=== PATIENT | male | born 1950 | race Caucasian/White ===

== ENCOUNTER 2024-03-06 14:06 | Outpatient (AMB) | payer MEDICARE, BC, SELFPAY ==
[2024-03-06 14:14] VITALS: BP 130/76; PULSE 100; BMI 22.9
--- NOTE | 2024-03-06 14:14 | A.OFFVIS_ITS ---
Vital Signs 03/06/24 14:14 Height 5 ft 4.5 in Weight 135 lb 5.821 oz BMI 22.9 BP 130/76 Blood Pressure Location Rt brachial Position Sitting Pulse 100 Pulse Source Pulse Oximeter Intake Visit Reasons: Joint Pain/LM Intake Note: Patient present today for joint pain. 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 Patient states that he has been noticing intermittent fatigue over the past year. This prompted his primary to send blood work to re-evaluate this including an AURORA. The AURORA came back positive 1:1280 cytoplasmic staining. In addition to his fatigue he also reports joint pain involving his hips, left great toe, knees, and occasional wrists. He denies prolonged morning stiffness or swelling involving his hands. Patient is an active gentleman who walks his dog for total of 4 miles a day and runs every other day for 3 miles. When he has noted his hip pain it is usually worse at night. Of note he had a acute monoarticular arthritis involving his left great toe- oc curred suddenly, warm and tender, resolved after about a week and a half. Mother had rheumatoid arthritis and daughter has some autoimmune disease that is undiagnosed at this time Denies rashes, photosensitivity, alopecia, oral/nasal ulcers, sicca symptoms, lymphadenopathy, chest pain/shortness of breath, inflammatory type joint pain, foamy urine, lower extremity edema, muscle weakness, Raynaud's Also denies history of seizure, CVA, psychosis, history of kidney problems, history of cytopenias, history of VTE including PE or DVTs Colonoscopy done last year was normal. BPH and most recent PSA was normal No night sweats or fevers No unexplained weight loss With respect to her fatigue patient states that he for the most part we will wake up feeling rested but by 2-3 p.m. in the afternoon he feels like she wants to take another nap and he is not sure if this is normal because of age or if this should be something concerning. He has been working on improving his sleep [facility] Medical History (Updated 03/06/24 @ 15:12 by Margi Craig MD) Gout AURORA positive Polyarthralgia Surgical History (Updated 03/06/24 @ 14:21 by ERIN Haywood) History of tonsillectomy Family History (Updated 03/06/24 @ 14:22 by ERIN Haywood) Mother No problems noted. Father Heart attack Social History (Updated 03/06/24 @ 14:22 by ERIN Haywood) Alcohol intake: never Patient Tobacco Use Status: Never used Tobacco Review of Systems Const Details: Review of Systems Constitutional: Denies fever, chills, weight loss ENT: Denies vision changes, eye pain or eye redness, dental caries, dry mouth GI: Denies nausea, vomiting, diarrhea, abdominal pain, change in BM Pulm: Denies SOB, DALY, hemoptysis, wheezing Cards: Denies chest pain, palpitations Skin: Denies Raynaud's, rash, nail changes, photosensitivity, [employer]PERVISOR COUNSELING [employer] GUIDANCE: Denies headaches, weakness, paresthesias, recurrent falls MSK: as per HPI All other systems reviewed and are unremarkable except noted above Physical Exam Vital Signs: Last Vital Signs Pulse 100 03/06/24 14:14 BP 130/76 03/06/24 14:14 BMI result Body Mass Index 22.9 Physical Examination CONSTITUITIONAL Patient alert and cooperative. Well appearing and in no apparent painful distress HEENT Conjunctiva and sclera clear. ?Pupils equal round and reactive to light. ?No lymphadenopathy. No tophi noted CHEST/RESPIRATORY SYSTEM Normal respiratory effort and able to speak in complete sentences. ?Clear to auscultation bilaterally. ?No crackles, rales, rhonchi, wheezes heard. CARDIAC SYSTEM Regular rate and rhythm. ?S1 and S2 heard no murmurs. ?Radial pulses intact bilaterally MSK Hands: ?Good deputy head strength bilaterally. Heberden's nodes noted throughout PIPs. ?No synovitis noted to the MCPs, PIPs or DIPs. ?No tenderness to palpation of these joints. Wrists: ?Full range of motion at the wrists without pain. ?No tenderness to palpation or synovitis noted to the wrists. Elbows: Full range of motion without pain. No tenderness, weakness, swelling, increased warmth or erythema. Shoulders: Full range of motion without pain. No tenderness, weakness, swelling, increased warmth or erythema. Hips: Full range of motion without pain. Hip bursa: No tenderness to palpation Knees: ?Full range of motion. ?No tenderness, swelling, increased warmth or erythema.?No effusion or crepitations Ankles: Full range of motion. ?No tenderness, swelling, increased warmth or erythema.? Feet: ?Negative squeeze test. ?No tenderness to palpation or swelling of the MTPs. Tender points:??No tenderness to palpation of the neck, shoulders, chest, elbows, hips, buttocks or knees. SKIN Skin intact without rashes. Results Reviewed Results Reviewed: AURORA 1:1280 Hb 11 Assessment & Plan Assessment & Plan (1) Polyarthralgia: Code(s): M25.50 - Pain in unspecified joint Category: Medical Plan: #Polyarthralgias At this time I do not believe that his polyarthralgias related to his positive AURORA. He denies any inflammatory type joint pain and she does not have any other signs or symptoms consistent with connective tissue disease. I do believe that his knee and hip pain might be related to osteoarthritis. No further workup at this time Signs and symptoms discussed with patient to look out for and he is to return to clinic if he has any further concerns (2) AURORA positive: Code(s): R76.8 - Other specified abnormal immunological findings in serum Category: Medical Plan: #Positive AURORA The presence of antinuclear antibodies (AURORA) is mainly associated with connective tissue diseases (CTD). ?However, their presence is found in healthy people especially in women and patients >65. ?In healthy individuals, the frequency of AURORA has been shown to be 31.7% of individuals at 1:40 serum dilution, 13.3% at 1:80, 5.0% at 1:160, and 3.3% at 1:320 (2). Some drugs and xenobiotics are also important for the development of AURORA (hydralazine, hydrochlorothiazide, minocycline, terbinafine, ciprofloxacin, furosemide, omeprazole). Moreover, the deficiency of vitamin D in the body of patients correlates with occurrence of these antibodies (1). At this time there is low suspicion for a connective tissue disease. I do believe that he has hydrochlorothiazide may have induced AURORA production. However this AURORA is not pathologic and this does not represent an autoimmune connective tissue disease at this time 1. Nancy?megan Young, Speedy Swanson, Johnathon Kirkland. Antinuclear antibodies in healthy people and non-rheumatic diseases - diagnostic and clinical implications. Reumatologia. 2018;56(4):243-248. doi: 10.5114/reum.2018.11802. Epub 2017Dec 02. PMID: 14872006; PMCID: [id number]. 2. Marquze EM, Faina TE, Juventino JS, Jami B, Ander R, Rosa MJ, Ki T, Jose Juan JA, Ana JR, Chacorta RG, Jonelle RN, Jak JS, Gerard NF, Nanci RJ, Catrina Y, Valeria A, Otoniel MR, Leon BEARD. Range of antinuclear antibodies in healthy individuals. Arthritis Rheum. 1996;40(9):1601-11. doi: 10.1002/art.[id number]. PMID: 2648097. (3) Gout: Code(s): M10.9 - Gout, unspecified Category: Medical Qualifiers: Gout site: toe Gout etiology: idiopathic Chronicity: unspecified Laterality: left Qualified Code(s): M10.072 - Idiopathic gout, left ankle and foot Plan: #Non crystal proven gout Patient with episode of left great toe pain and swelling. His description is consistent with an acute gout attack. He has not had any further flares of gout since that attack about a year ago. Does not qualify for urate lowering therapy at this time. Plan I spent 45 minutes reviewing the record and labs, seeing the patient, discussing the treatment plan and documenting in the medical record ? Coding Level of Care Code New Pt Level 4 (49452) Diagnoses Polyarthralgia M25.50 AURORA positive R76.8 Idiopathic gout involving toe of left foot, unspecified chronicity M10.072 Gout site: toe Gout etiology: idiopathic Chronicity: unspecified Laterality: left
--- OUTSIDE RECORDS SUMMARY | 2024-03-13 14:51 | XMS_ITS ---
Author Organization [facility] Allergies Not Yet Asked Medications No Information Problems Problem Status Assessment and P ramesh Hypertension Inactive History of Procedures Order Codes Created Status No known procedures Results Tests Date Results Flag Units Reference Interval No Results Within Months Family History No Known Family History Social History Social History Observation Description Dates Observed Smoking Status Unknown if ever smoked Social Data No Known Social Data Immunizations Vaccine Date Status Unknown immunization status 03/13/2024 Comp leted Plan of Treatment Health Screenings Date Goal Action Comments October 08, 2022 Colon cancer screening Fecal immunochemi lakshmi test (FIT) Insurance Providers Payer name Policy type / Coverage type Policy ID Covered libertarian ID Policy Miranda Unknown Other Unknown Self
== END 2024-03-06 15:13 | disposition home or self-care (01) ==
PROVIDERS: Visit Provider Student in an Organized Health Care Education/Training Program
DX: M25.50 Pain in unspecified joint (principal); R76.8 Other specified abnormal immunological findings in serum; M10.072 Idiopathic gout, left ankle and foot
CPT/HCPCS: 99204

== ENCOUNTER → 2024-03-06 14:06 | Outpatient (BNVA) | payer MEDICARE, BC, SELFPAY | PROVIDERS: Visit Provider Student in an Organized Health Care Education/Training Program | DX: M10.072 Idiopathic gout, left ankle and foot (principal); M25.50 Pain in unspecified joint; R76.8 Other specified abnormal immunological findings in serum | CPT/HCPCS: 99202 ==